=== PATIENT | male | born 1945 | race Caucasian/White ===

== ENCOUNTER 2019-02-21 08:42 | Day surgery (SDC) | payer MEDICARE, MEDICAID ==
[~2019-02-21] VITALS: Ht 167.6 cm; Wt 64.1 kg
[2019-02-21] MEDS ORDERED: LACTATED RINGERS 1,000 ML IV SCH (09:32)
[2019-02-21] MEDS ORDERED: ERGO500017 PO (09:42)
[2019-02-21] MEDS ORDERED: LISI40TA PO (09:42)
[2019-02-21] MEDS ORDERED: SIMV10TA3 PO (09:42)
[2019-02-21] MEDS ORDERED: OMEG-14 PO (09:42)
[2019-02-21] MEDS ORDERED: ASPI-496 PO (09:42)
[2019-02-21] MEDS ORDERED: FENO48TA5 PO (09:42)
[2019-02-21] MEDS ORDERED: MULT-658 PO (09:42)
[2019-02-21] MEDS ORDERED: OMEP-110 PO (09:42)
[2019-02-21] MEDS ORDERED: ATEN1TAB4 PO (09:42)
[2019-02-21] MEDS ORDERED: TAMS-11 PO (09:42)
[2019-02-21] MEDS ORDERED: METF500T17 PO (09:42)
[2019-02-21 09:44] VITALS: BP 96/61
[2019-02-21] MEDS ORDERED: PLEASE ENTER HEIGHT AND WEIGHT MC SCH (10:00)
[2019-02-21 10:18] LABS: BASOPHILS # (AUTO) 0.03 x10^3/uL (0-0.1); BASOPHILS % (AUTO) 0 % (0-1); EOSINOPHILS # (AUTO) 0.19 x10^3/uL (0-0.4); EOSINOPHILS % (AUTO) 3 % (1-7); LYMPHOCYTES # (AUTO) 1.47 x10^3/uL (1-3.4); LYMPHOCYTES % (AUTO) 20 % (22-44); MD NO; MEAN CORPUSCULAR HEMOGLOBIN 26.3 pg (27.5-34.5); MEAN CORPUSCULAR HGB CONC 32.4 g/dL (33.2-36.2); MEAN CORPUSCULAR VOLUME 80.9 fL (81-97); MEAN PLATELET VOLUME 8.5 fL (7.4-10.4); MONOCYTES # (AUTO) 0.74 x10^3/uL (0.2-0.8); MONOCYTES % (AUTO) 10 % (2-9); NEUTROPHILS # (AUTO) 4.88 x10^3/uL (1.8-6.8); NEUTROPHILS % (AUTO) 67 % (42-75); PLATELET COUNT 221 x10^3/uL (130-400); RED BLOOD COUNT 4.58 x10^6/uL (4.38-5.82)
[2019-02-21 10:28] LABS: INTERNATIONAL NORMALIZED RATIO 0.98 (0.93-1.1); PROTHROMBIN TIME 10.3 Seconds (9.6-11.5)
[2019-02-21 10:29] LABS: ALANINE AMINOTRANSFERASE 20 U/L (12-78); ALBUMIN 3.3 g/dL (3.4-5.0); ANION GAP 6 mmol/L (5-15); CALCIUM 9.4 mg/dL (8.5-10.1); CHLORIDE 108 mmol/L (98-107)
[2019-02-21 10:32] LABS: % IRON SATURATION 12 % (20-55); ALKALINE PHOSPHATASE 104 U/L (45-117); BILIRUBIN,TOTAL 0.4 mg/dL (0.2-1.0); CREATININE 1.11 mg/dL (0.7-1.3); IRON LEVEL 43 mcg/dL (65-175); TOTAL IRON BINDING CAPACITY 357 mcg/dL (250-450); TOTAL PROTEIN 7.7 g/dL (6.4-8.2)
[2019-02-21] MEDS ORDERED: MIDAZOLAM 1 MG/ML, 2ML ONE (11:38)
[2019-02-21] MEDS ORDERED: FENTANYL PF 100 MCG/2ML ONE ×2 (11:38→12:45)
[2019-02-21] MEDS ORDERED: PROPOFOL 10 MG/ML, 20ML ONE (11:40)
[2019-02-21] MEDS ORDERED: ONDANSETRON 2MG/ML, 2ML ONE (11:40)
[2019-02-21] MEDS ORDERED: SUCCINYLCHOLINE 20 MG/ML, 10ML ONE (11:40)
[2019-02-21] MEDS ORDERED: PHENYLEPHRINE 10 MG/ML ONE (11:40)
[2019-02-21] MEDS ORDERED: DEXAMETHASONE 4 MG/ML, 5ML ONE (11:40)
[2019-02-21] MEDS ORDERED: MEPERIDINE/PF 50 MG/ML ONE (12:07)
[2019-02-21] MEDS ORDERED: OMNIPAQUE 350 MG/ML, 50 ML BOTTLE ONE (12:14)
[2019-02-21] MEDS ORDERED: HALOPERIDOL 5 MG/ML IV PRN (12:30)
[2019-02-21] MEDS ORDERED: DIPHENHYDRAMINE 50 MG/ML, 1ML IVPush PRN (12:30)
[2019-02-21] MEDS ORDERED: OXYcodone 5 MG/5 ML ORAL.SOL UDC PO PRN (12:30)
[2019-02-21] MEDS ORDERED: EPHEDRINE 50 MG/ML, 1ML IVPush PRN (12:30)
[2019-02-21] MEDS ORDERED: MEPERIDINE/PF 25MG/0.5ML IVPush PRN (12:30)
[2019-02-21] MEDS ORDERED: ACETAMINOPHEN 325 MG TABLET PO PRN (12:30)
[2019-02-21] MEDS ORDERED: HALOPERIDOL 5 MG/ML ONE (12:34)
[2019-02-21] MEDS ORDERED: HYDROmorphone 2 MG/ML, 1ML ONE (12:38)
[2019-02-21] MEDS: HYDROmorphone 2 MG/ML, 1ML IVPush PRN ×2 (12:40→12:49)
[2019-02-21] MEDS: FENTANYL PF 100 MCG/2ML IV PRN ×2 (12:46→12:53)
[2019-02-21] MEDS ORDERED: OXYcodone 5 MG/5 ML ORAL.SOL UDC ONE (13:06)
[2019-02-21] MEDS ORDERED: ACETAMINOPHEN 650 MG/20.3 ML UDC ONE (13:08)
== END 2019-02-21 16:35 | disposition home or self-care (01) ==
LOC: OUT 08:42
PROVIDERS: ATTEND Internal Medicine Gastroenterology
DX: C15.5 Malignant neoplasm of lower third of esophagus (principal); C78.00 Secondary malignant neoplasm of unspecified lung; K44.9 Diaphragmatic hernia without obstruction or gangrene; K86.2 Cyst of pancreas; I10 Essential (primary) hypertension; E11.9 Type 2 diabetes mellitus without complications; N40.0 Benign prostatic hyperplasia without lower urinary tract symptoms; E78.00 Pure hypercholesterolemia, unspecified; F17.210 Nicotine dependence, cigarettes, uncomplicated; Z79.82 Long term (current) use of aspirin; Z79.84 Long term (current) use of oral hypoglycemic drugs; Z79.01 Long term (current) use of anticoagulants; Z79.899 Other long term (current) drug therapy
CPT/HCPCS: 36415; 43236; 43239; 43266; 76000; 80053; 82728; 83540; 83550; 85025; 85610; 85730; 88104; 88305; 88333; 93005; A4648; C1769; C1874; J0330; J1100; J1170; J1630; J2175; J2250; J2370; J2405; J2704; J3010; J7120; Q9967